=== PATIENT | female | born 1970 | race African-American/Black ===

== ENCOUNTER 2023-03-15 16:15 | Inpatient (IN) | payer OTHER ==
[~2023-03-15] VITALS: Ht 165.1 cm; Wt 84.8 kg
[2023-03-15 18:00] VITALS: BP 202/119; PULSE 92; RESP 18; TEMP 98; O2SAT 100
[2023-03-15] MEDS ORDERED: ENALAPRILAT IV INJ 1.25 MG/ML VIAL IV STA (18:18)
[2023-03-15 18:30] VITALS: BP 202/119; PULSE 92; RESP 18; TEMP 98.2; O2SAT 100
[2023-03-15 19:15] VITALS: BP 173/94; PULSE 83; RESP 18; TEMP 97.4; O2SAT 100
[2023-03-15] MEDS: HYDRALAZINE HCL 20 MG/ML VIAL IV PRN (19:55)
[2023-03-15 20:00] VITALS: BP 173/94; PULSE 83; RESP 18; TEMP 97.4; O2SAT 100
[2023-03-15] MEDS ORDERED: DOXAZOSIN MESYLA2 MG PO (20:02)
[2023-03-15] MEDS ORDERED: VALSARTAN160 MG PO (20:14)
[2023-03-15] MEDS ORDERED: ZOLPIDEM TARTRATE 5 MG TAB PO PRN ×2 (22:37→22:45)
[2023-03-15] MEDS ORDERED: DOCUSATE SODIUM 100 MG CAP PO PRN (22:45)
[2023-03-15] MEDS ORDERED: ONDANSETRON HCL INJ 2MG/ML 2ML 2 MG/ML VIAL IV PRN (22:45)
[2023-03-15] MEDS ORDERED: IPRATROPIUM BROMIDE 0.02% 2.5 ML NEB NEB PRN (22:45)
[2023-03-15] MEDS ORDERED: HYDROCODONE/APAP 5MG-325MG TAB PO PRN (22:45)
[2023-03-15] MEDS ORDERED: ENALAPRILAT IV INJ 1.25 MG/ML VIAL IV PRN (22:45)
[2023-03-15] MEDS ORDERED: DIPHENHYDRAMINE HCL INJ 50 MG/ML VIAL IV PRN (22:45)
[2023-03-15] MEDS ORDERED: ALBUTEROL SULF 0.083% NEB SOLN 3 ML NEB NEB PRN (22:45)
[2023-03-15] MEDS ORDERED: POTASSIUM CHLORIDE 20 MEQ TAB CR PO PRN (22:45)
[2023-03-16] VITALS (8 sets, daily range): BP systolic 100–168; BP diastolic 62–104; PULSE 78–95; RESP 16–20; TEMP 97.2–98.7; O2SAT 99–100
[2023-03-16 05:39] LABS: BASOPHILS # (AUTO) 0.1 (0.0-0.1); BASOPHILS % 1.5 % (0.0-1.0); EOSINOPHILS # (AUTO) 0.1 (0.0-0.4); EOSINOPHILS % 2.9 % (0.0-6.0); HEMATOCRIT 43.3 % (34.2-44.1); HEMOGLOBIN 14.1 g/dL (12.0-16.0); LYMPHOCYTES # (AUTO) 1.4 (1.0-3.2); LYMPHOCYTES % 40.9 % (18.0-39.1); MEAN CORPUSCULAR HEMOGLOBIN 26.5 pg (28-32); MEAN CORPUSCULAR HGB CONC 32.6 g/dL (31-35); MEAN CORPUSCULAR VOLUME 81.2 fL (81-99); MONOCYTES # (AUTO) 0.5 (0.2-0.8); MONOCYTES % 15.5 % (4.4-11.3); NEUTROPHILS # (AUTO) 1.3 (2.1-6.9); NEUTROPHILS % 38.9 % (38.7-80.0); PLATELET COUNT 254 x10e3/uL (140-360); RED BLOOD COUNT 5.33 x10e6/uL (3.6-5.1); RED CELL DISTRIBUTION WIDTH 14.5 % (11.7-14.4)
[2023-03-16 06:02] LABS: ALBUMIN 3.7 g/dL (3.5-5.0); ANION GAP 14.3 mmol/L (8-16); CALCIUM 9.7 mg/dL (8.4-10.2); CHOL/HDL RATIO 2.8 (3.0-3.6); CREATININE, SERUM 0.77 mg/dL (0.57-1.11); MAGNESIUM 1.8 MG/DL (1.3-2.1); POTASSIUM 4.3 mmol/L (3.5-5.1)
[2023-03-16 06:53] LABS: THYROID STIMULATING HORMONE 1.707 uIU/mL (0.350-4.940)
[2023-03-16] MEDS: PANTOPRAZOLE SOD 40 MG TABEC PO SCH (07:30)
[2023-03-16] MEDS: ACETAMINOPHEN 325 MG TAB PO PRN ×2 (08:03→14:28)
[2023-03-16] MEDS: HYDROCHLOROTHIAZIDE 25 MG TAB PO SCH (08:04)
[2023-03-16] MEDS: LOSARTAN POTASSIUM 100 MG TAB PO SCH (08:04)
[2023-03-16] MEDS ORDERED: ONDANSETRON HCL 4 MG ORAL DISINTEGRATING TAB PO PRN (13:00)
[2023-03-16] MEDS: HYDRALAZINE HCL 20 MG/ML VIAL IV PRN (17:14)
[2023-03-17] VITALS (7 sets, daily range): BP systolic 107–174; BP diastolic 69–99; PULSE 81–98; RESP 16–19; TEMP 97.6–98.6; O2SAT 98–100
[2023-03-17] MEDS: PANTOPRAZOLE SOD 40 MG TABEC PO SCH (07:30)
[2023-03-17] MEDS: LOSARTAN POTASSIUM 100 MG TAB PO SCH (08:25)
[2023-03-17] MEDS: HYDROCHLOROTHIAZIDE 25 MG TAB PO SCH (09:00)
[2023-03-17] MEDS: SPIRONOLACTONE 25 MG TAB PO SCH (12:29)
[2023-03-17] MEDS: DOXAZOSIN MESYLATE 2 MG TAB PO SCH ×2 (12:29→21:12)
[2023-03-17] MEDS ORDERED: IOPAMIDOL 370 MG/ML 100 ML INFUS..BTL INJ ONE (12:49)
[2023-03-17] MEDS ORDERED: SODIUM CHLORIDE 0.9% 100 ML ONE (12:49)
[2023-03-18] VITALS: BP 142/93; PULSE 88; RESP 18; TEMP 98.1; O2SAT 100
[2023-03-18 04:00] VITALS: BP 119/91; PULSE 84; RESP 20; TEMP 98.1; O2SAT 99
[2023-03-18 08:00] VITALS: BP 102/73; PULSE 90; RESP 18; TEMP 98.1; O2SAT 99
[2023-03-18 08:19] VITALS: BP 102/73; PULSE 90; RESP 18; TEMP 98.1; O2SAT 100
[2023-03-18] MEDS: PANTOPRAZOLE SOD 40 MG TABEC PO SCH (08:46)
[2023-03-18] MEDS: DOXAZOSIN MESYLATE 2 MG TAB PO SCH (09:38)
[2023-03-18] MEDS: SPIRONOLACTONE 25 MG TAB PO SCH (09:39)
[2023-03-18] MEDS: LOSARTAN POTASSIUM 100 MG TAB PO SCH (09:42)
[2023-03-18 11:48] VITALS: BP 121/86; PULSE 91; RESP 18; TEMP 98; O2SAT 100
[2023-03-18] MEDS ORDERED: ALDACTONE25 MG PO (13:45)
[2023-03-18] MEDS ORDERED: CARDURA2 MG PO (13:45)
[2023-03-18] MEDS ORDERED: COZAAR100 MG PO (13:45)
== END 2023-03-18 14:52 | disposition home or self-care (01) | DRG 305 ==
LOC: INTOOBSV 16:15 → MED/SURG3 16:15 → OBSVTOIN 03-17 10:54
PROVIDERS: ADMIT Internal Medicine; ATTEND Internal Medicine
DX: I16.0 Hypertensive urgency (principal); G47.00 Insomnia, unspecified; R51.9 Headache, unspecified; G44.89 Other headache syndrome
CPT/HCPCS: 36415; 70450; 74174; 80053; 80061; 82088; 82384; 82530; 83735; 83835; 84244; 84443; 85025; G0378; J7050; Q0162; Q9967